=== PATIENT | male | born 1985 | race Caucasian/White ===

== ENCOUNTER 2019-05-05 18:26 | Emergency (ER) | payer BC ==
[2019-05-05 18:51] VITALS: BP 126/77
--- NOTE | 2019-05-05 19:04 | UC ---
UC General HPI - HPI Summary HPI Summary: 33 yo gentleman presents with girlfriend c/o nausea all day, vomited here in waiting room. Has not eaten since yesterday. Small amount po liquid earlier today, but vomited after sipping gingerale in waiting room. No fever. 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 No sx. No rash. No diarrhea, melena, brpr. No rash. + hx alcohol, less now. No abd surgical hx. + hx abdominal discomfort periodically, but has not had that checked. Does not have current pcp (former pcp retired). - History of Current Complaint Chief Complaint: UCGeneralIllness Stated Complaint: FLU SXS Time Seen by Provider: 05/05/19 18:50 Hx Obtained From: Patient Pain Intensity: 4 - Allergy/Home Medications Allergies/Adverse Reactions: Allergies Allergy/AdvReac Type Severity Reaction Status Date / Time sulfamethoxazole Allergy Hives Verified 05/05/19 18:51 [From Bactrim] trimethoprim [From Bactrim] Allergy Hives Verified 05/05/19 18:51 Home Medications: Home Medications Dm/Pseudoephed/Acetaminophen [Day-Time Multi-Symptom Co] 1 cap PO DAILY PRN 11/16 [History Confirmed 05/05/19] PMH/Surg Hx/FS Hx/Imm Hx Previously Healthy: Yes - Surgical History Surgical History: None - Family History Known Family History: Positive: Other - father gi issues - Social History Alcohol Use: Weekly Substance Use Type: None Smoking Status (MU): Never Smoked Tobacco Review of Systems All Other Systems Reviewed And Are Negative: Yes Constitutional: Positive: Fatigue Skin: Positive: Negative Eyes: Positive: Negative ENT: Positive: Negative Respiratory: Positive: Other - see hpi Cardiovascular: Positive: Negative Gastrointestinal: Positive: Other - see hpi Genitourinary: Positive: Negative Motor: Positive: Negative Neurovascular: Positive: Negative Musculoskeletal: Positive: Negative Neurological: Positive: Negative Psychological: Positive: Negative Is Patient Immunocompromised?: No Physical Exam Triage Information Reviewed: Yes Appearance: Well-Nourished, Other: - looks sick, pale, fatigued. Conversing ok. NAD. Vital Signs: Initial Vital Signs Temp 100.5 F 05/05/19 18:46 Pulse 96 05/05/19 18:46 Resp 18 05/05/19 18:46 BP 126/77 05/05/19 18:46 Pulse Ox 99 05/05/19 18:46 Vital Signs Reviewed: Yes Eye Exam: Normal ENT: Positive: Pharyngeal erythema, TM dull Neck exam: Normal Neck: Positive: Supple, Nontender Respiratory Exam: Normal Respiratory: Positive: Chest non-tender, Lungs clear, Normal breath sounds, No respiratory distress, No accessory muscle use Cardiovascular Exam: Normal - HR 90's at triage, increased to 100's at phys exam sitting up Cardiovascular: Positive: RRR, No Murmur, Pulses Normal, Brisk Capillary Refill Abdominal Exam: Other - + bs, soft but volunt guarding upper abd tender LUQ, extending to L lat abd No cvat + midepig tenderness Musculoskeletal Exam: Normal - moves x 4 ext's Neurological Exam: Normal - grossly nonfocal Psychological Exam: Normal - conversing easily and appropriately Course/Dx - Course Course Of Treatment: Influenza neg Zofran po x 1 dissolvable D/w pt and girlfriend. Recommend ED evaluation / management. He carefully considered, and will go. Declines ems. Girlfriend will drive. Questions as posed answered to the best of ability. D/w Niki Martin NP 19:42 - Diagnoses Provider Diagnosis: Dehydration, Vomiting, Acute abdominal pain Discharge ED - Sign-Out/Discharge Documenting (check all that apply): Patient Departure All imaging exams completed and their final reports reviewed: No Studies - Discharge Plan Condition: Guarded Disposition: HOME-RECOMMEND TO ED Patient Education Materials: Dehydration (ED), Acute Abdominal Pain (ED) Referrals: No Primary Care Phys,NOPCP [Primary Care Provider] - Additional Instructions: Please go to the Emergency Department. Stop and call 911 if problems en route. Rapid influenza test here negative. You have received 4mg zofran here (anti-nausea). - Billing Disposition and Condition Condition: GUARDED Disposition: Home-Recommend to ED
[2019-05-05] MEDS ORDERED: Ondansetron ODT TAB* 4 MG PO ONE (19:09)
[2019-05-05 19:15] LABS: Influenza A Molecular NEGATIVE (Negative); Influenza B Molecular NEGATIVE (Negative)
== END 2019-05-05 19:43 | disposition home health service (06) ==
LOC: UCCORT 18:26
DX: E86.0 Dehydration (principal); R11.10 Vomiting, unspecified; R10.12 Left upper quadrant pain; R53.83 Other fatigue; Z88.2 Allergy status to sulfonamides
CPT/HCPCS: 99202; A9270-GY; G0463